=== PATIENT | female | born 1985 | race Caucasian/White ===

== ENCOUNTER → 2017-10-29 07:52 | Outpatient (CLI) | payer OTHER, SELFPAY ==
[2017-10-29 10:24] LABS: Estradiol 80.4 pg/mL; Free T3 2.6 pg/mL (2.18-3.98); T4 Free Direct 0.98 ng/dL (0.76-1.46)
[2017-10-29 10:30] LABS: Hemoglobin A1c 5.5 % (4.2-6.3)
[2017-10-29 12:31] LABS: Progesterone Level 5.99 ng/mL (See Comment)
[2017-10-29 16:02] LABS: Xtra Tube EP Lab EXTRA TUBE
[2017-10-31 09:22] LABS: DHEA Sulfate 279.9 ug/dL (84.8-378.0)
== END ==
PROVIDERS: Family Provider Student in an Organized Health Care Education/Training Program; PCP Student in an Organized Health Care Education/Training Program; Visit Provider Obstetrics & Gynecology
DX: N92.6 Irregular menstruation, unspecified (principal); R10.2 Pelvic and perineal pain
CPT/HCPCS: 36415; 82533; 82627; 82670; 83036; 84144; 84403; 84439; 84443; 84481; 82626

== ENCOUNTER → 2018-03-31 09:14 | Outpatient (CLI) | payer OTHER, SELFPAY ==
--- NOTE | 2018-03-31 09:17 | US_ITS ---
STUDY: ULTRASOUND BREAST - LEFT REASON FOR EXAM: Female, 32 years old. Palpable lump left breast. TECHNIQUE: Axial and longitudinal images of the LEFT breast were performed with a high resolution ultrasound transducer. COMPARISON: Comparison is made with prior mammogram and evaluated today. FINDINGS: LEFT Breast: There is a 6 mm x 5 mm x 3 mm hypoechoic nodule in the central fatty hilum at the 2:00 position of the breast at 5 cm from the nipple. This is in keeping with a small lymph node. US/Breast Limited Unilateral IMPRESSION: 6 mm x 5 mm x 3 mm hypoechoic nodule with central fatty hilum at the 2:00 position of the breast. This most likely represents a small lymph node. ASSESSMENT CATEGORY: BIRADS Category 2: Benign. A letter regarding these results will be sent to the patient by the facility within 30 days. Electronically Signed: Jose De Jesus Rees MD at 13:27 EST , Service support ,
--- NOTE | 2018-03-31 09:17 | BI_ITS ---
MAMMOGRAPHY - BILATERAL DIAGNOSTIC REASON FOR EXAM: Female, 32 years old. Left breast lump. PERTINENT HISTORY: Grandmother with breast cancer. TECHNIQUE: Digital bilateral breast larisa (3D mammographic acquisition) in the CC and MLO projections. 2-D mediolateral oblique (MLO) and craniocaudad (CC) views of both breasts were obtained. CAD: Full Field Digital Mammography with Computer Added Detection was performed. COMPARISON: None. Baseline examination. FINDINGS: Breast Composition: The breasts are heterogeneously dense, which may obscure small masses. A group of microcalcifications is seen in the upper outer quadrant of the right breast. A biopsy is recommended. No mass lesion is seen. Ultrasound of the left breast palpable abnormality is recommended. No other significant abnormalities are identified. BI/DIAG MAMM W/CAD, BILAT IMPRESSION: Suspicious group of microcalcifications in the upper outer aspect of the right breast as described. A biopsy is recommended. Ultrasound of the palpable abnormality in the left breast is recommended as well. ASSESSMENT CATEGORY: BIRADS Category 4: Suspicious - Biopsy Should Be Considered. A letter regarding these results will be sent to the patient by the facility within 30 days. Approximately 10% of breast cancers are not detected by mammography. A normal mammogram should not delay biopsy of a clinically suspicious abnormality. Electronically Signed: Jose De Jesus Rees MD at 11:30 EST , Service support ,
== END ==
PROVIDERS: Family Provider Student in an Organized Health Care Education/Training Program; PCP Student in an Organized Health Care Education/Training Program; Referring Provider Obstetrics & Gynecology; Visit Provider Obstetrics & Gynecology
DX: N63.0 Unspecified lump in unspecified breast (principal)
CPT/HCPCS: 76642; 77062; 77066; G0279

== ENCOUNTER → 2018-04-06 13:00 | Outpatient (CLI) | payer OTHER, SELFPAY ==
[2018-04-04 15:58] VITALS: BMI 22.2
--- NOTE | 2018-04-06 14:00 | BRBX_PTH ---
PATIENT: ZELALEM EDDY LOC: [facility] U#:[id number] AGE/SX: 39/F ROOM: RE04/06/[address]: Dr. Edmond Baron MD : 1985 BED: DIS: SPEC #: [id number] RECD: 04/06/18 14:38 STATUS: FRANCIS REAdan #: [id number] WEI: 04/06/18 14:[address]: Edmond Baron DEPT: SURGICAL PATHOLOGY RECD BY: Carlin Garrison ENTERED: 04/07/18 11:34 SP TYPE: BREAST BX OTHR DR: Dr. Marquise George DO Tissues: Right breast, NOS Procedures: Surgery Specimen Level IV HEADER OPERATION: Right stereotactic breast biopsy PRE-OP DIAGNOSIS: Right upper outer quadrant breast microcalcifications TISSUE SUBMITTED: Right breast core tissue ISCHEMIC TIME: 1 minute FIXATION TIME: 49.5 hours MICROSCOPIC DIAGNOSIS Right breast, upper outer quadrant microcalcifications, stereotactic core biopsy: Fragments of benign breast tissue with frequent microcalcifications, no pathologic diagnosis. Negative for atypia or malignancy. JENNY:jake 04/10/18 COMMENT Correlation with clinical, radiologic findings and appropriate follow up are necessary. MICROSCOPIC DESCRIPTION Slides are reviewed. GROSS DESCRIPTION Received is one container labeled with the patient's name and not further designated. The specimen consists of multiple elongated fragments of alva-yellow fibroadipose tissue that in aggregate measure 3 x 2.5 x 0.3 cm. The entire specimen is submitted in one cassette. / JENNY:jake 04/07/18 TC:5 CPT: 81191
--- NOTE | 2018-04-06 14:23 | PCM.OPRPT ---
Problem List (1) Abnormal mammogram of right breast Status: Acute Report of Operation Date of Procedure: 04/06/18 Pre-Operative Diagnosis: Diffuse clustered microscopic occasions upper outer quadrant right breast Post-Operative Diagnosis: Same Surgery/Procedure Performed:: Stereotactic needle core biopsy upper outer quadrant right breast Description of Surgical Findings:: Timeout and informed consent obtained. 32-year-old female was taken to the stereotactic room and placed prone on the table. The right breast was placed in the cc view. There is diffuse area of dense microcalcifications involving a large portion of the upper outer quadrant right breast. Stereotactic images were obtained. Digital information was taken on a single target site. The breast was prepped with Betadine. 1% lidocaine was used as a local anesthetic. Throughout the procedure a total of 9 cc was used. A small stab incision was created. An 8-gauge resolve needle was advanced to prefer depth. Prefire films were obtained. The device was fired. 6 cores were obtained. Specimen mammograms obtained demonstrating all cores with multiple microcalcifications present. A mini marking clip was left at the 12 o'clock position. She was released from the device and pressure was held for hemostasis. Steri-Strip Telfa OpSite dressing applied. She was given activity wound care instructions. The specimens were immediately transferred to formalin for final analysis. Progress and prognosis felt to be good. Edmond Baron M.D., F.A.C.S. Type of Anesthesia:: Local
== END ==
LOC: BIRAD 13:01
PROVIDERS: Family Provider Student in an Organized Health Care Education/Training Program; PCP Student in an Organized Health Care Education/Training Program; Referring Provider Surgery; Visit Provider Surgery
DX: R92.8 Other abnormal and inconclusive findings on diagnostic imaging of breast (principal)
CPT/HCPCS: 19081; 88305; J7050